=== PATIENT | female | born 1945 | race Caucasian/White ===

== ENCOUNTER → 2016-05-19 | Outpatient (CLI) | payer BC, MEDICARE ==
[~2016-05-19] MED LIST: ALLEGRA-D 24HR1 T24 PO; AMBIEN 10MG10 MG PO; BYSTOLIC10 MG PO; FIORINAL W/CODE1 CA2 PO; FLEXERIL 1010 MG/TAB PO; FLONASE NASAL S16 GM NS; NORCO 325 MG-51 TAB PO; PRILOSEC 20MG20 MG PO; ROXICODONE 55 MG/TAB PO; RT SPIRIVA18 MCG IH; SYNTHROID0.112 MG/T PO; SYNTHROID0.125 MG/T PO; TOFRANIL 25MG T25 MG PO; TRICOR145 MG PO; ZYPREXA7.5 MG PO
== END ==
LOC: COL.VAS 14:01
DX: R42 Dizziness and giddiness (principal); R26.89 Other abnormalities of gait and mobility

== ENCOUNTER 2016-06-04 10:28 | Day surgery (SDC) | payer BC, MEDICARE ==
[~2016-06-04] VITALS: Ht 167.6 cm; Wt 68.5 kg
[2016-06-04] MEDS ORDERED: FLEXERIL 1010 MG/TAB PO (11:00)
[2016-06-04] MEDS ORDERED: NORCO 325 MG-51 TAB PO (11:01)
[2016-06-04] MEDS ORDERED: PRILOSEC 20MG20 MG PO (11:11)
[2016-06-04] MEDS ORDERED: AMBIEN 10MG10 MG PO (11:11)
[2016-06-04] MEDS ORDERED: RT SPIRIVA18 MCG IH (11:11)
[2016-06-04] MEDS ORDERED: SYNTHROID0.125 MG/T PO (11:11)
[2016-06-04] MEDS ORDERED: FIORINAL W/CODE1 CA2 PO (11:12)
[2016-06-04] MEDS ORDERED: BYSTOLIC10 MG PO (11:12)
[2016-06-04] MEDS ORDERED: FLONASE NASAL S16 GM NS (11:12)
[2016-06-04] MEDS ORDERED: TRICOR145 MG PO (11:13)
[2016-06-04] MEDS ORDERED: TOFRANIL 25MG T25 MG PO (11:13)
[2016-06-04 11:17] VITALS: BP 113/58; PULSE 73; TEMP 97.8
[2016-06-04 13:00] VITALS: BP 105/63; PULSE 66; TEMP 97.8
[2016-06-04 13:15] VITALS: BP 102/56; PULSE 64
[2016-06-04 13:40] VITALS: BP 101/67; PULSE 67
[2016-06-04] MEDS ORDERED: ROXICODONE 55 MG/TAB PO (18:16)
== END 2016-06-04 14:00 | disposition home or self-care (01) ==
LOC: SDCO 10:28
DX: K31.1 Adult hypertrophic pyloric stenosis (principal); K83.8 Other specified diseases of biliary tract; K31.89 Other diseases of stomach and duodenum; R93.3 Abnormal findings on diagnostic imaging of other parts of digestive tract; R94.5 Abnormal results of liver function studies
CPT/HCPCS: C1726; C1769; J2250; J2704; J3010; J7120

== ENCOUNTER 2016-06-04 15:29 | Emergency (ER) | payer BC, MEDICARE ==
[~2016-06-04] VITALS: Ht 167.6 cm; Wt 77.3 kg
[~2016-06-04 15:29] MED LIST changes: -ALLEGRA-D 24HR1 T24 PO; -ROXICODONE 55 MG/TAB PO; -SYNTHROID0.112 MG/T PO; -ZYPREXA7.5 MG PO
[2016-06-04 15:38] VITALS: TEMP 99.2
[2016-06-04] MEDS ORDERED: ROXICODONE 55 MG/TAB PO (18:16)
[2016-06-04 19:58] VITALS: BP 118/76; PULSE 73
== END 2016-06-04 20:01 | disposition home or self-care (01) ==
LOC: COL.ER 15:29
DX: S82.144A Nondisplaced bicondylar fracture of right tibia, initial encounter for closed fracture (principal); S80.211A Abrasion, right knee, initial encounter; S00.33XA Contusion of nose, initial encounter; W01.10XA Fall on same level from slipping, tripping and stumbling with subsequent striking against unspecified object, initial encounter; Y92.009 Unspecified place in unspecified non-institutional (private) residence as the place of occurrence of the external cause; I10 Essential (primary) hypertension
CPT/HCPCS: J2270; J2405; J7030; L1830

== ENCOUNTER → 2016-07-21 | Outpatient (CLI) | payer BC ==
[~2016-07-21] MED LIST changes: +ALLEGRA-D 24HR1 T24 PO; +ROXICODONE 55 MG/TAB PO; +SYNTHROID0.112 MG/T PO; +ZYPREXA7.5 MG PO
== END ==
LOC: COL.RAD 11:15
DX: N83.202 Unspecified ovarian cyst, left side (principal)

== ENCOUNTER 2016-09-14 14:17 | Day surgery (SDC) | payer BC ==
[~2016-09-14] VITALS: Ht 167.6 cm; Wt 68.2 kg
[~2016-09-14 14:17] MED LIST changes: -ALLEGRA-D 24HR1 T24 PO; -SYNTHROID0.112 MG/T PO; -ZYPREXA7.5 MG PO
[2016-09-14] MEDS ORDERED: ALLEGRA-D 24HR1 T24 PO (14:47)
[2016-09-14] MEDS ORDERED: ZYPREXA7.5 MG PO (14:52)
[2016-09-14] MEDS ORDERED: SYNTHROID0.112 MG/T PO (14:54)
[2016-09-14 15:06] VITALS: BP 116/59; PULSE 64; TEMP 98.7
[2016-09-14 16:18] VITALS: BP 121/62; PULSE 71; TEMP 98.4
[2016-09-14 16:33] VITALS: BP 101/57; PULSE 66
[2016-09-14 16:48] VITALS: BP 111/63; PULSE 67
== END 2016-09-14 17:10 | disposition home or self-care (01) ==
LOC: SDCO 14:17
DX: K22.2 Esophageal obstruction (principal); R13.10 Dysphagia, unspecified; K21.9 Gastro-esophageal reflux disease without esophagitis; I10 Essential (primary) hypertension; J45.909 Unspecified asthma, uncomplicated; E03.9 Hypothyroidism, unspecified; M41.9 Scoliosis, unspecified; F32.9 Major depressive disorder, single episode, unspecified
CPT/HCPCS: C1726; J2704; J7120

== ENCOUNTER 2017-03-19 18:11 | Observation (INO) | payer BC ==
[~2017-03-19] VITALS: Ht 167.6 cm; Wt 68.3 kg
[~2017-03-19 18:11] MED LIST changes: +ALLEGRA-D 24HR1 T24 PO; +SYNTHROID0.112 MG/T PO; +ZYPREXA7.5 MG PO
[2017-03-19 18:37] LABS: GRAN # 3.1 (1.4-6.5); GRAN % 67.9 % (42.2-75.2); LYMPH # 1.2 (1.2-3.4); LYMPH % 25.5 % (20.0-51.0); MEAN CELL VOLUME 94 fl (80.0-100.0); MEAN CORPUSCULAR HGB CONC 34 g/dl (33.0-37.0); MEAN PLATELET VOLUME 10.5 fl (7.4-10.4); MONO # 0.3 (0.1-0.6); MONO % 6.4 % (1.7-9.3); PLATELET COUNT 209 K/mm3 (130-400); RED BLOOD COUNT 3.71 M/mm3 (4.10-5.30); REDCELL DISTRIBUTION WIDTH-CV 12.8 % (11.5-14.5)
[2017-03-19 18:38] VITALS: BP 116/73; PULSE 88
[2017-03-19 18:38] LABS: HEMATOCRIT 34.8 % (37.0-47.0); HEMOGLOBIN 11.7 g/dl (12.5-16.0); MEAN CORPUSCULAR HEMOGLOBIN 32 pg (27.0-31.0)
[2017-03-19 18:49] LABS: ALBUMIN 3.9 gm/dL (3.5-5.0); BILIRUBIN,TOTAL 0.5 mg/dL (0.0-1.0); C-REACTIVE PROTEIN 1.8 mg/dL (0.0-0.9); CALCIUM 8.8 mg/dL (8.4-10.2); CREATININE, serum 0.82 mg/dL (0.52-1.25); POTASSIUM 3.4 mmol/L (3.4-5.0); TOTAL PROTEIN 6.8 gm/dL (6.4-8.2)
[2017-03-19 18:58] LABS: TROPONIN-I 0.028 ng/mL (0.000-0.034)
[2017-03-19 21:15] LABS: COLLECTION METHOD CLEAN CATCH
[2017-03-19 21:25] LABS: PH 5 (5-8); SQUAMOUS EPITHELIAL 0-2 /hpf; URINE APPEARANCE Clear; URINE BACTERIA None Seen /hpf; URINE BILIRUBIN Negative (NEGATIVE); URINE BLOOD Negative (NEGATIVE); URINE COLOR Yellow; URINE GLUCOSE Negative (NEGATIVE); URINE KETONE Negative (NEGATIVE); URINE LEUKOCYTE ESTERASE Negative (NEGATIVE); URINE NITRATE Negative (NEGATIVE); URINE PROTEIN(semi-quant) Negative (NEGATIVE); URINE RBC 0-2 /hpf; URINE UROBILINOGEN Negative (NEGATIVE)
[2017-03-20 00:25] VITALS: BP 132/61; PULSE 83; TEMP 97.3
[2017-03-20 03:12] LABS: CALCIUM 8.3 mg/dL (8.4-10.2); CREATININE, serum 0.72 mg/dL (0.52-1.25); POTASSIUM 3.2 mmol/L (3.4-5.0)
[2017-03-20 04:00] VITALS: BP 97/59; PULSE 72; TEMP 98.5
[2017-03-20 07:31] LABS: GRAN # 2.4 (1.4-6.5); GRAN % 60.4 % (42.2-75.2); LYMPH # 1.2 (1.2-3.4); LYMPH % 29.8 % (20.0-51.0); MEAN CELL VOLUME 94 fl (80.0-100.0); MEAN CORPUSCULAR HGB CONC 33 g/dl (33.0-37.0); MEAN PLATELET VOLUME 10.8 fl (7.4-10.4); MONO # 0.4 (0.1-0.6); MONO % 9.5 % (1.7-9.3); PLATELET COUNT 203 K/mm3 (130-400); RED BLOOD COUNT 3.31 M/mm3 (4.10-5.30); REDCELL DISTRIBUTION WIDTH-CV 13.1 % (11.5-14.5)
[2017-03-20 07:32] LABS: HEMATOCRIT 31.2 % (37.0-47.0); HEMOGLOBIN 10.4 g/dl (12.5-16.0); MEAN CORPUSCULAR HEMOGLOBIN 31 pg (27.0-31.0)
[2017-03-20 08:09] VITALS: BP 106/64; PULSE 73; TEMP 98.5
[2017-03-20 11:25] VITALS: BP 116/62; PULSE 68; TEMP 98.3
[2017-03-20 11:32] VITALS: BP 116/62; PULSE 65; TEMP 95.3
== END 2017-03-20 14:30 | disposition home or self-care (01) ==
LOC: COL.ER 18:11 → SURG 22:25
PROVIDERS: Emergency Medicine; Nurse Practitioner
DX: E86.0 Dehydration (principal); R53.1 Weakness; E87.6 Hypokalemia; K21.9 Gastro-esophageal reflux disease without esophagitis; E03.9 Hypothyroidism, unspecified; G47.00 Insomnia, unspecified; F32.9 Major depressive disorder, single episode, unspecified; I10 Essential (primary) hypertension; Z79.82 Long term (current) use of aspirin; Z90.710 Acquired absence of both cervix and uterus; Z80.3 Family history of malignant neoplasm of breast
CPT/HCPCS: G0378; G8978-GP; G8979-GP; G8980-GP; J2405; J3480; J7030; J7050; J7060; Q9967

== ENCOUNTER 2017-06-05 01:52 | Day surgery (SDC) | payer BC ==
[~2017-06-05] VITALS: Ht 167.6 cm; Wt 65.9 kg
[2017-06-05] VITALS (262 sets, daily range): BP systolic 85–103; BP diastolic 40–58; PULSE 73–93; TEMP 98.8; O2SAT 78–100
[2017-06-05] MEDS ORDERED: RT SPIRIVA18 MCG IH (02:14)
[2017-06-05] MEDS ORDERED: FLONASEALLERGY NS (02:14)
[2017-06-05] MEDS ORDERED: ZYPREXA7.5 MG PO (02:15)
[2017-06-05 02:23] LABS: BASO % 0.2 % (0.0-2.0); GRAN # 10.1 (1.4-6.5); GRAN % 81.1 % (42.2-75.2); HEMATOCRIT 36.3 % (37.0-47.0); LYMPH # 1.7 (1.2-3.4); LYMPH % 13.8 % (20.0-51.0); MEAN CELL VOLUME 94 fl (80.0-100.0); MEAN CORPUSCULAR HEMOGLOBIN 31 pg (27.0-31.0); MEAN CORPUSCULAR HGB CONC 33 g/dl (33.0-37.0); MEAN PLATELET VOLUME 10.3 fl (7.4-10.4); MONO # 0.5 (0.1-0.6); MONO % 4.3 % (1.7-9.3); PLATELET COUNT 355 K/mm3 (130-400); RED BLOOD COUNT 3.88 M/mm3 (4.10-5.30); REDCELL DISTRIBUTION WIDTH-CV 14.1 % (11.5-14.5)
[2017-06-05 02:29] LABS: CALCIUM 9.3 mg/dL (8.4-10.2); CREATININE, serum 1.03 mg/dL (0.52-1.25); POTASSIUM 3.6 mmol/L (3.4-5.0)
== END 2017-06-05 13:30 | disposition home or self-care (01) ==
LOC: COL.ER 01:52 → ICU 02:42 → SDCO 02:42
PROVIDERS: Emergency Medicine
DX: K22.2 Esophageal obstruction (principal); K21.0 Gastro-esophageal reflux disease with esophagitis; R13.10 Dysphagia, unspecified; K21.9 Gastro-esophageal reflux disease without esophagitis; Z88.6 Allergy status to analgesic agent; J45.909 Unspecified asthma, uncomplicated
CPT/HCPCS: OP; C1726; J1610; J2250; J3010; J7040; Q9967

== ENCOUNTER 2018-04-10 02:31 | Observation (INO) | payer BC, MEDICARE | END 2018-04-11 18:17 | disposition home or self-care (01) | LOC: COL.ER 02:31 → MEDICAL 05:01 | PROVIDERS: ADMIT Hospitalist | DX: I95.1 Orthostatic hypotension (principal); R79.89 Other specified abnormal findings of blood chemistry; I10 Essential (primary) hypertension; K21.9 Gastro-esophageal reflux disease without esophagitis; E03.9 Hypothyroidism, unspecified; G47.00 Insomnia, unspecified; F32.9 Major depressive disorder, single episode, unspecified; W18.30XA Fall on same level, unspecified, initial encounter; Y92.003 Bedroom of unspecified non-institutional (private) residence as the place of occurrence of the external cause; Z79.899 Other long term (current) drug therapy; Z85.3 Personal history of malignant neoplasm of breast ==

== ENCOUNTER 2018-04-26 09:04 | Emergency (ER) | payer BC ==
[~2018-04-26] VITALS: Ht 162.6 cm; Wt 68.2 kg
[~2018-04-26 09:04] MED LIST changes: +CARAFATE 1GM1 G PO; +FLONASEALLERGY NS; +LIORESAL 1010 MG/TAB PO; +NUCYNTA50 MG PO
[2018-04-26 09:12] VITALS: BP 130/70; PULSE 99; TEMP 99.6
[2018-04-26] MEDS ORDERED: AMBIEN 5MG TABLE5 MG PO (09:31)
[2018-04-26] MEDS ORDERED: NUCYNTA ER50 MG PO (09:36)
[2018-04-26] MEDS ORDERED: FIORINAL W/CODE1 CA2 PO (09:40)
== END 2018-04-26 10:56 | disposition home or self-care (01) ==
LOC: COL.ER 09:04
DX: M25.572 Pain in left ankle and joints of left foot (principal); R22.42 Localized swelling, mass and lump, left lower limb; K21.9 Gastro-esophageal reflux disease without esophagitis; E03.9 Hypothyroidism, unspecified; F32.9 Major depressive disorder, single episode, unspecified; I10 Essential (primary) hypertension; Z79.82 Long term (current) use of aspirin

== ENCOUNTER → 2018-05-30 | Outpatient (CLI) | payer BC ==
[~2018-05-30] MED LIST changes: +AMBIEN 5MG TABLE5 MG PO; +NUCYNTA ER50 MG PO
== END ==
LOC: COL.RAD 11:04
DX: I65.22 Occlusion and stenosis of left carotid artery (principal); M47.812 Spondylosis without myelopathy or radiculopathy, cervical region; M81.0 Age-related osteoporosis without current pathological fracture; H74.8X2 Other specified disorders of left middle ear and mastoid; I77.1 Stricture of artery; Z90.89 Acquired absence of other organs
CPT/HCPCS: Q9967

== ENCOUNTER 2021-12-23 09:26 | Day surgery (SDC) | payer BC ==
[~2021-12-23] VITALS: Ht 162.6 cm; Wt 74.1 kg
[~2021-12-23 09:26] MED LIST changes: +NORVASC2.5 MG PO; +PLAVIX 75MG TAB75 MG PO; +PROVENTIL0.09 MG/A1 IH; +TOPROL XL 25MG25 MG PO
[2021-12-23] MEDS ORDERED: ROXICODONE 55 MG/TAB PO (09:59)
[2021-12-23 10:15] VITALS: BP 137/79; PULSE 96; TEMP 97.9
[2021-12-23] MEDS ORDERED: LIALDA 1.2 GM1.2 GM PO (11:22)
[2021-12-23 11:28] VITALS: BP 123/79; PULSE 90; TEMP 97.3
--- NOTE | 2021-12-23 11:28 | NUR ---
REPORT RECEIVED FROM KIKI BURRIS RN. PT TRANSPORTED TO [facility] VIA [facility]RET[facility]ER; A&OX3. HEART RATE REG, LUNG SOUNDS CLEAR BILAT. CALL THOMAS WITHIN REACH; SAFETY MAINTAINED.
--- NOTE | 2021-12-23 11:40 | NUR ---
PT TOLERATING PO LIQUIDS AND CRACKERS WELL. DR [place] AT BEDSIDE SPEAKING WITH PT AND FRIEND, CRIS.
[2021-12-23 11:45] VITALS: BP 131/92; PULSE 90
--- NOTE | 2021-12-23 11:52 | NUR ---
DISCHARGE INSTRUCTIONS GIVEN TO PT WITH FRIEND AT BEDSIDE; QUESTIONS ANSWERED; UNDERSTANDING VERBALZIED.
[2021-12-23 12:00] VITALS: BP 148/79; PULSE 86
--- NOTE | 2021-12-23 12:30 | NUR ---
Elli Quarles from case management spoke w/ PT and provided DNR status, per PT request.
--- NOTE | 2021-12-23 12:35 | NUR ---
PT DISCHARGED OUT OF DEPT VIA WC WITH FRIEND DRIVING. SAFETY MAINTAINED.
== END 2021-12-23 12:35 | disposition home or self-care (01) ==
LOC: SDCO 09:26
DX: K52.89 Other specified noninfective gastroenteritis and colitis (principal); K64.0 First degree hemorrhoids
CPT/HCPCS: J2704; J7120